=== PATIENT | female | born 2000 | race American Indian/Alaskan Native ===

== ENCOUNTER 2020-10-07 14:03 | Observation (INO) | payer OTHER ==
[2020-10-07 14:49] LABS: Amorphous Crystals,Urine 2+; Bilirubin,Urine NEG (Negative); Blood,Urine NEG (Negative); Color,Urine Yellow (Yellow); Protein,Urine <15 mg/dL mg/dL (Negative); Urobilinogen,Urine < 2.0 mg/dL (<2.0)
[2020-10-07 14:55] LABS: RBC,Urine < 1.0 /HPF (0.0-6.0); WBC,Urine < 1.0 /HPF (0.0-6.0)
[2020-10-07] MEDS: LACTATED RINGERS 1,000 ML IV SCH (19:50)
[2020-10-07] MEDS ORDERED: ACETAMINOPHEN 325 MG TAB PO PRN (20:02)
[2020-10-07] MEDS: miSOPROStol 200 MCG TAB VG SCH (20:28)
[2020-10-07] MEDS ORDERED: LIDOCAINE (2%) 20 MG/1 ML VIAL 20 ML MDV INFILTRATI ONE (20:44)
[2020-10-07] MEDS ORDERED: MINERAL OIL 30 ML ORAL LIQD PO PRN (20:44)
[2020-10-07] MEDS ORDERED: ePHEDrine SULFATE 50 MG/1 ML INJ IV PRN (20:44)
[2020-10-07] MEDS ORDERED: TERBUTALINE 1 MG/1 ML INJ SUB-Q PRN (20:44)
[2020-10-07] MEDS ORDERED: LACTATED RINGERS 1,000 ML IV SCH (20:45)
[2020-10-07] MEDS ORDERED: OXYTOCIN DRIP 30 UNITS/500 ML BAG IV SCH ×2 (21:00)
[2020-10-07 21:21] LABS: Hemoglobin 12.4 gm/dl (10.1-14.3); Mean Corpuscular HGB Conc 33 % (30-34); Mean Corpuscular Volume 95 fl (79-97); Platelet Count 241 K/mm3 (140-440); Red Blood Count 3.89 M/mm3 (3.65-5.03); Red Cell Distribution Width 14.1 % (13.2-15.2)
--- NOTE | 2020-10-07 22:08 | History and Physical Report ---
History of Present Illness Date of examination: 10/07/20 Date of admission: 10/07/2020 Chief complaint: no heart tones History of present illness: 20y/o @ 22+1 weeks who presents with complaint of not being able to obtain heart tones at home. The patient had purchased a monitor for home use. She denies any precipitating event for her demise. Ultrasound was performed in triage that confirmed a demise. She denies vaginal bleeding or leakage of fluid. Past History Past Medical History: no pertinent history Past Surgical History: no surgical history - Obstetrical History Expected Date of Delivery: 02/09/21 Actual Gestation: 22 Week(s) 1 Day(s) : 1 Para: 0 Hx # Term Pregnancies: 0 Number of Pregnancies: 0 Spontaneous Abortions: 0 Induced : 0 Number of Living Children: 0 Medications and Allergies Allergies Allergy/AdvReac Type Severity Reaction Status Date / Time No Known Allergies Allergy Verified 10/07/20 14:14 Active Meds: Active Medications Acetaminophen (Acetaminophen 325 Mg Tab) 650 mg PO Q6H PRN PRN Reason: Pain, Mild (1-3) Last Admin: 10/07/20 20:13 Dose: 650 mg Documented by: Ephedrine Sulfate (Ephedrine Sulfate 50 Mg/1 Ml Inj) 10 mg IV Q2M PRN PRN Reason: Hypotension Lactated Ringer's (Lactated Ringers) 1,000 mls @ 125 mls/hr IV DIRECT STEFANIA Last Admin: 10/07/20 19:50 Dose: 125 mls/hr Documented by: Oxytocin/Sodium Chloride (Pitocin/Ns 30 Unit/500ml) 30 units in 500 mls @ 2 mls/hr IV TITR STEFANIA; Protocol Oxytocin/Sodium Chloride (Pitocin/Ns 30 Unit/500ml) 30 units in 500 mls @ 40 mls/hr IV TITR STEFANIA; Protocol Mineral Oil (Mineral Oil 30 Ml Oral Liqd) 30 ml PO QHS PRN PRN Reason: Constipation Misoprostol (Misoprostol 200 Mcg Tab) 200 mcg VG Q8HR STEFANIA Last Admin: 10/07/20 20:28 Dose: 200 mcg Documented by: Terbutaline Sulfate (Terbutaline 1 Mg/1 Ml Inj) 0.25 mg SUB-Q ONCE PRN PRN Reason: Hyperstimulation/Hypertonicity Review of Systems Genitourinary: no vaginal bleeding, no leakage of fluid, no contractions - Vital Signs Vital signs: Vital Signs Pulse Pulse Ox 88 100 10/07/20 14:26 10/07/20 14:26 Temp Pulse Resp BP Pulse Ox 98.1 F 92 H 16 116/72 100 10/07/20 19:45 10/07/20 19:45 10/07/20 19:45 10/07/20 19:45 10/07/20 16:16 - Physical Exam Breasts: Positive: deferred Cardiovascular: Regular rate Abdomen: Positive: normal appearance Results Result Diagrams: 10/07/20 18:50 Abnormal lab results 10/07/20 Range/Units 18:50 WBC 13.4 H (4.5-11.0) K/mm3 All other labs normal. Assessment and Plan - Patient Problems (1) demise, greater than 22 weeks, antepartum Current Visit: Yes Status: Acute Plan to address problem: admit for induction of labor with cytotec
[2020-10-08] MEDS: BUTORPHANOL 2 MG/1 ML INJ IV PRN (03:34)
[2020-10-08] MEDS: LACTATED RINGERS 1,000 ML IV SCH ×2 (03:45→11:44)
[2020-10-08] MEDS: miSOPROStol 200 MCG TAB VG SCH (04:48)
[2020-10-08] MEDS: miSOPROStol 200 MCG TAB PO SCH ×5 (09:08→23:44)
--- NOTE | 2020-10-08 11:31 | Progress Note ---
Assessment and Plan - Patient Problems (1) demise, greater than 22 weeks, antepartum Current Visit: Yes Status: Acute Plan to address problem: findings reviewed with patient -plan for delivery discussed, proceed with cytotec as ordered -risks associated with delivery to include placental retention discussed, r/b/a/i for D&C reviewed, all questions answered, the patient expressed understanding -IV pain med prn Subjective Date of service: 10/08/20 Principal diagnosis: IUFD>20wks Interval history: 20yo G1 with IUFD. IOL initiated last pm with Misoprostil PV. She has no new complaints. Reports one episode of nausea this morning. 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 Pain minimal. She denies persistent contractions, leakage of fluid, or vaginal bleeding. Objective - Constitutional Vitals: Vital Signs - 12hr 10/08/20 10/08/20 10/08/20 03:38 07:45 07:48 Temperature 98.9 F Pulse Rate 92 H 72 57 L Respiratory 16 Rate Blood Pressure 120/72 118/55 Blood Pressure [Left] Blood Pressure 120/72 [Right] O2 Sat by Pulse 92 Oximetry 10/08/20 10/08/20 07:49 07:54 Temperature 97.9 F Pulse Rate 72 70 Respiratory 18 Rate Blood Pressure Blood Pressure 118/55 [Left] Blood Pressure [Right] O2 Sat by Pulse 98 97 Oximetry General appearance: Present: no acute distress - Respiratory Respiratory effort: normal - Cardiovascular Rhythm: regular Extremities: No edema - Labs CBC & Chem 7: 10/07/20 18:50 Labs: Abnormal lab results 10/07/20 Range/Units 18:50 WBC 13.4 H (4.5-11.0) K/mm3 Medications & Allergies - Medications Allergies/Adverse Reactions: Allergies No Known Allergies Allergy (Verified 10/07/20 14:14) Home Medications: Home Medications Medication Instructions Recorded Confirmed Last Taken Type One Daily Tablet 1 tab PO DAILY 10/08/20 10/08/20 Unknown History Active Medications: Generic Name Dose Route Start Last Admin Trade Name Freq PRN Reason Stop Dose Admin Acetaminophen 650 mg 10/07/20 20:02 10/07/20 20:13 Acetaminophen 325 Mg Tab PO 650 mg Q6H PRN Administration Pain, Mild (1-3) Butorphanol Tartrate 2 mg 10/08/20 03:24 10/08/20 03:34 Butorphanol 2 Mg/1 Ml Inj IV 2 mg Q2H PRN Administration Labor Pain Ephedrine Sulfate 10 mg 10/07/20 20:44 Ephedrine Sulfate 50 Mg/1 Ml Inj IV Q2M PRN Hypotension Lactated Ringer's 1,000 mls @ 125 mls/hr 10/07/20 15:00 10/08/20 03:45 Lactated Ringers IV 125 mls/hr DIRECT STEFANIA Administration Oxytocin/Sodium Chloride 30 units in 500 mls @ 2 mls/hr 10/07/20 21:00 Pitocin/Ns 30 Unit/500ml IV TITR STEFANIA Protocol Oxytocin/Sodium Chloride 30 units in 500 mls @ 40 mls/hr 10/07/20 21:00 Pitocin/Ns 30 Unit/500ml IV TITR STEFANIA Protocol Mineral Oil 30 ml 10/07/20 20:44 Mineral Oil 30 Ml Oral Liqd PO QHS PRN Constipation Misoprostol 200 mcg 10/08/20 09:00 10/08/20 09:08 Misoprostol 200 Mcg Tab PO 200 mcg Q4HR STEFANIA Administration Terbutaline Sulfate 0.25 mg 10/07/20 20:44 Terbutaline 1 Mg/1 Ml Inj SUB-Q ONCE PRN Hyperstimulation/Hypertonicity
[2020-10-09] MEDS: miSOPROStol 200 MCG TAB VG SCH ×4 (03:09→12:52)
[2020-10-09] MEDS: LACTATED RINGERS 1,000 ML IV SCH ×2 (05:10→12:51)
[2020-10-09] MEDS ORDERED: miSOPROStol 200 MCG TAB VG ONE (12:30)
[2020-10-09] MEDS: BUTORPHANOL 2 MG/1 ML INJ IV PRN (12:52)
--- NOTE | 2020-10-09 15:20 | Procedure Note ---
OB Delivery Note - Delivery Date of Delivery: 10/09/20 Surgeon: LOLA BELLO Estimated blood loss: 100cc - Vaginal Delivery induction: misoprostol Delivery monitor: external uterine Route of delivery: Delivery placenta: spontaneous Delivery laceration: none Anesthesia: intravenous Delivery comments: Precipitous delivery of demise en caul. Nurses Disha and Celestino were in attendance. No lacerations noted, minimal bleeding. Pain controlled. Inspection significant for male infant. Hospital disposition requested. - A at 1 minute: 0 at 5 minutes: 0 Infant Gender: Male (IUFD)
[2020-10-09] MEDS ORDERED: ACETAMINOPHEN 325 MG TAB PO PRN (15:21)
[2020-10-09] MEDS ORDERED: LANOLIN/ZINC/DIMETHICONE (LANSINOH) 7 GM TP PRN (15:21)
[2020-10-09] MEDS ORDERED: diphenhydrAMINE 25 MG CAP PO PRN (15:21)
[2020-10-09] MEDS ORDERED: WITCH HAZEL/ GLYCERIN PAD TP PRN (15:21)
[2020-10-09] MEDS ORDERED: oxyCODONE /ACETAMINOPHEN 5-325MG TAB PO PRN (15:21)
--- NOTE | 2020-10-09 15:34 | Progress Note ---
Assessment and Plan of IUFD en caul. Placenta intact. PP Care per routine -patient strongly desires PM discharge -will repeat H/H in 6 hours, if stable, VSS, tolerating po, ambulating and voiding without assistance, will plan for discharge home Patient to followup with primary OBGYN - Patient Problems (1) demise > 22 weeks, delivered, current hospitalization Current Visit: Yes Status: Acute Plan to address problem: Uncomplicated delivery -hospital disposition requested. Subjective - Subjective Date of service: 10/09/20 Principal diagnosis: IUFD>20wks Interval history: POD 0 s/p of IUFD Patient reports: appetite normal : Objective - Vital Signs Latest vital signs: Vital Signs Temp Pulse Resp BP BP Pulse Ox 10/09/20 15:26 78 113/65 10/09/20 15:11 78 118/70 10/09/20 14:57 77 122/68 10/09/20 14:38 89 123/93 10/09/20 13:55 98.8 F 16 10/09/20 12:51 84 139/98 10/09/20 11:00 98.1 F 16 10/09/20 09:34 73 108/64 10/09/20 07:14 98.3 F 74 16 109/68 99 10/09/20 06:23 70 109/62 10/09/20 06:22 98.4 F 70 16 109/62 10/08/20 23:46 74 115/58 10/08/20 23:45 98.1 F 74 17 115/58 10/08/20 21:29 98.8 F 87 16 118/74 118/74 10/08/20 19:28 77 117/56 Intake and Output 10/09/20 10/09/20 10/09/20 06:59 14:59 22:59 Intake Total 960.417 Balance 960.417 Intake: IV 960.417 Lactated Ringers 1,000 ml 960.417 @ 125 mls/hr IV DIRECT STEFANIA Rx#:[id number] Other: Estimated Blood Loss 150 - Exam Breasts: Present: deferred Cardiovascular: Present: Regular rate Abdomen: Present: normal appearance, soft. Absent: distention Vulva: both: normal Uterus: Present: firm Extremities: Present: normal
[2020-10-09] MEDS ORDERED: IBUPROFEN 600 MG TAB PO SCH (16:00)
[2020-10-09 21:15] LABS: Hematocrit 34.4 % (30.3-42.9); Hemoglobin 11.8 gm/dl (10.1-14.3)
[2020-10-09 21:29] VITALS: BP 112/58
--- NOTE | 2020-10-09 21:49 | Discharge Summary ---
Providers - Providers Date of Admission: 10/07/20 20:44 Date of discharge: 10/09/20 Attending physician: VIRGEN GAMBOA Primary care physician: VIRGEN GAMBOA Hospitalization Reason for admission: IUFD Delivery: Laceration: none Other procedures: none complications: none Discharge diagnosis: other ( Demise) baby: male Condition at discharge: Good Disposition: DC-01 TO HOME OR SELFCARE - Discharge Diagnoses (1) demise > 22 weeks, delivered, current hospitalization Status: Acute Plan - Provider Discharge Summary Activity: no sex for 6 weeks Diet: routine Instructions: routine Additional instructions: [] Smoking cessation referral if applicable(refer to patient education folder for contact #) [] Refer to [facility] Booklet Call your doctor immediately for: * Fever > 100.5 * Heavy vaginal bleeding ( >1 pad per hour) * Severe persistent headache * Shortness of breath * Reddened, hot, painful area to leg or breast * Drainage or odor from incision. * Keep incision clean and dry at all times and follow doctor's instructions regarding bathing/showering - Follow up plan Follow up: VIRGEN GAMBOA MD [Primary Care Provider] - 7 Days
--- NOTE | 2020-10-10 07:38 | Ultrasound Report ---
ULTRASOUND OBSTETRIC LIMITED INDICATION / CLINICAL INFORMATION: fht's. Clinical Gestational Age (GA) in weeks, days: 22 weeks 1 day TECHNIQUE: Transabdominal. COMPARISON: None available. FINDINGS: HEART RATE (beats per minute): No cardiac activity identified. AMNIOTIC FLUID INDEX (cm) = no visible fluid identified. (normal = 7-24 cm) PRESENTATION: Transverse. ADDITIONAL FINDINGS: Cervical length is 3.3 cm IMPRESSION: 1. Findings are consistent with intrauterine demise. Signer Name: Yumiko Jeong MD Signed: 10/07/2020 7:25 PM Workstation Name: [id number]
== END 2020-10-09 22:30 | disposition home or self-care (01) ==
LOC: TRG 14:03 → APU 14:05 → LD 17:50 → TRG 20:44 → LD 20:44
PROVIDERS: ADMIT Obstetrics & Gynecology; ATTEND Obstetrics & Gynecology
DX: O36.4XX0 Maternal care for intrauterine death, not applicable or unspecified (principal); Z20.828 Contact with and (suspected) exposure to other viral communicable diseases; Z3A.22 22 weeks gestation of pregnancy; Z37.1 Single stillbirth
CPT/HCPCS: 36415; 59409; 76815; 81001; 85014; 85018; 85027; 86592; 86706; 86762; 86850; 86900; 86901; 87591; 87806; 88305; 96374; 96376; G0378; J0595; J7120; U0003